=== PATIENT | female | born 1960 | race Caucasian/White ===

== ENCOUNTER 2018-09-27 15:42 | Emergency (ER) | payer OTHER ==
[2018-09-27] MEDS ORDERED: Bacitracin 500 Units/gm Oint Foilpak UD TOP STA (16:03)
--- NOTE | 2018-09-27 16:03 | ED PDOC ---
Upper Extremity Pain/Injury Time Seen by Provider: 09/27/18 15:56 Chief Complaint (Nursing): Finger,Hand,&Wrist Chief Complaint (Provider): Right Finger Injury History Per: Patient History/Exam Limitations: no limitations Onset/Duration Of Symptoms: Days (x1) Current Symptoms Are (Timing): Still Present Additional Complaint(s): 57 year old female presents to the ED for evaluation of a right hand injury. Patient states that last night around 1999 she was cutting a cucumber with a slicer when she accidentally cut the fifth finger which she initially cleaned with water and Neosporin. Reports that she came in today to make sure there was no signs of infection. Otherwise denies fever, chills, and other complaints. No active bleeding upon arrival, but patient does have localized pain to the area. Right hand dominant Tetanus up to date (x3 years) PMD: none provided Past Medical History Reviewed: Historical Data, Nursing Documentation, Vital Signs Vital Signs: Last Vital Signs Temp 97.6 F 09/27/18 15:52 Pulse 62 09/27/18 15:52 Resp 16 09/27/18 15:52 BP 117/63 09/27/18 15:52 Pulse Ox 99 09/27/18 15:52 - Medical History PMH: Hyperthyroidism, Pneumonia - Surgical History Surgical History: Cholecystectomy, (x1) - Family History Family History: States: Unknown Family Hx - Social History Current smoker - smoking cessation education provided: No Alcohol: None Drugs: Denies - Home Medications Home Medications: Ambulatory Orders Medication Instructions Recorded Hydrocodone/Acetaminophen 1 tab PO Q4H PRN #12 tab 07/07/15 [Acetaminophen-Hydrocodone Bitartrate 325 mg-5] Sulfamethoxazole/Trimethopri 1 tab PO BID #14 tab 07/07/15 [Bactrim Ds 800 mg-160 mg] RX: Bacitracin 1 each TOP BID #1 tube 09/27/18 RX: Naproxen 500 mg PO BID PRN #20 tab 09/27/18 - Allergies Allergies/Adverse Reactions: Allergies Allergy/AdvReac Type Severity Reaction Status Date / Time No Known Allergies Allergy Verified 09/27/18 15:52 Review of Systems ROS Statement: Except As Marked, All Systems Reviewed And Found Negative Constitutional: Negative for: Fever, Chills Skin: Positive for: Other (cut on right hand fifth finger with mild localized pain, no bleeding) Physical Exam - Reviewed Nursing Documentation Reviewed: Yes Vital Signs Reviewed: Yes - Physical Exam Comments: GENERAL APPEARANCE: Patient is awake, alert, oriented x 3, in no acute distress. Resting comfortably. SKIN: Warm, dry; (-) cyanosis. NECK: Supple, FROM CHEST AND RESPIRATORY: (-) rales, (-) rhonchi, (-) wheezes; breath sounds equal bilaterally. HEART AND CARDIOVASCULAR: (-) irregularity RIGHT HAND: 1cm x 1cm superficial skin avulsion to ulnar aspect of distal palmar surface of right fifth digit, (+) localized tenderness, (-) tendon involvement, (-) bone involvement, (-) active bleeding, (-) erythema, (-) drainage, (-) edema (-) evidence of surrounding infection. Full ROM all digits. Sensation and capillary refill intact. NEURO AND PSYCH: Mental status as above. Gait: steady. Speech: clear. (-) facial asymmetry - ECG O2 Sat by Pulse Oximetry: 99 (RA) Pulse Ox Interpretation: Normal Medical Decision Making Medical Decision Making: Initial Impression: skin avulsion of finger Time: 1600 Initial Plan: --Wound irrigated with saline and dressed with a Bacitracin bandage. Patient educated on wound care. --Naproxen 500mg PO Lab/Diagnostic results d/w the patient in great detail. Diagnosis of skin avulsion of finger d/w the patient. Based on history, exam and diagnostic results, plan will be for outpatient follow up with PMD/hand. Patient instructed to follow-up with pmd / referral provided / the clinic in 1- 2 days without fail. Advised to take medication as prescribed. Return to the emergency room at any time for any new or worsening symptoms. Patient states she fully agrees with and understands discharge instructions. States that she agrees with the plan and disposition. Verbalized and repeated discharge instructions and plan. I have given the patient opportunity to ask any additional questions. --- Scribe Attestation: Documented by Ann Madrigal, acting as a scribe for Kimberly De La Cruz PA-C. Provider Scribe Attestation: All medical record entries made by the Scribe were at my direction and personally dictated by me. I have reviewed the chart and agree that the record accurately reflects my personal performance of the history, physical exam, medical decision making, and the department course for this patient. I have also personally directed, reviewed, and agree with the discharge instructions and disposition. Disposition - Clinical Impression Clinical Impression: Avulsion of skin of finger - Patient ED Disposition Is Patient to be Admitted: No Counseled Patient/Family Regarding: Studies Performed, Diagnosis, Need For Followup, Rx Given - Disposition Referrals: Celestina Herbert MD [Staff Provider] - primary, doctor [Other] Disposition: Routine/Home Disposition Time: 16:20 Condition: STABLE Additional Instructions: The emergency medical care you received today was directed at your acute symptoms. If you were prescribed any medication, please fill it and take as directed. It may take several days for your symptoms to resolve. Return to the Emergency Department if your symptoms worsen, do not improve, or if you have any other problems. Please contact your doctor in 2 days for re-evaluation and follow up / or call one of the physicians/clinics you have been referred to that are listed on the Patient Visit Information form that is included in your discharge packet. Bring any paperwork you were given at discharge with you along with any medications you are taking to your follow up visit. Our treatment cannot replace ongoing medical care by a primary care provider (PCP) outside of the emergency department. Prescriptions: RX: Bacitracin 1 each TOP BID #1 tube RX: Naproxen 500 mg PO BID PRN #20 tab PRN Reason: Pain, Moderate (4-7) Instructions: Wound Care (DC), Common Finger Injuries (DC) Forms: [employer] (Hungarian) Print Language: FRENCH - POA Present On Arrival: None
[2018-09-27] MEDS ORDERED: Naproxen 500 MG TAB PO STA (16:07)
[2018-09-27] MEDS ORDERED: Naproxen 500 MG TAB PO ONE (16:13)
[2018-09-27] MEDS ORDERED: Bacitracin 500 Units/gm Oint Foilpak UD ONE (16:13)
[2018-09-27 16:38] VITALS: BP 122/70; PULSE 78; RESP 18; TEMP 98
[2018-09-30 17:21] VITALS: O2SAT 99
== END 2018-09-27 16:37 | disposition home or self-care (01) ==
LOC: H.ER 15:42
DX: S61.306A Unspecified open wound of right little finger with damage to nail, initial encounter (principal); W26.0XXA Contact with knife, initial encounter; Y92.89 Other specified places as the place of occurrence of the external cause; E05.90 Thyrotoxicosis, unspecified without thyrotoxic crisis or storm

== ENCOUNTER 2018-11-17 17:30 | Emergency (ER) | payer SELFPAY ==
[2018-11-17 17:58] VITALS: BP 119/76; PULSE 84; RESP 16; TEMP 98.3; O2SAT 98
== END 2018-11-17 18:45 | disposition left against medical advice (07) ==
LOC: H.ER 17:30
DX: Z02.89 Encounter for other administrative examinations (principal)

== ENCOUNTER 2018-11-18 13:37 | Emergency (ER) | payer SELFPAY ==
[2018-11-18 13:46] VITALS: BP 123/77; PULSE 87; RESP 17; TEMP 98.3; O2SAT 100
[2018-11-18] MEDS ORDERED: Naproxen 500 MG TAB PO STA (13:59)
[2018-11-18] MEDS ORDERED: Naproxen 500 MG TAB PO ONE (14:18)
[2018-11-18 14:39] LABS: URINE BACTERIA OCC (<OCC); URINE BILIRUBIN NEGATIVE (NEGATIVE); URINE BLOOD MODERATE (NEGATIVE); URINE CLARITY CLOUDY (Clear); URINE COLOR YELLOW (YELLOW); URINE GLUCOSE (UA) NEG (NEGATIVE); URINE LEUKOCYTE ESTERASE LARGE Leu/uL (Negative); URINE PROTEIN 30 mg/dL (NEGATIVE); URINE UROBILINOGEN 0.2-1.0 mg/dL (0.2-1.0); WBC CLUMPS OCC /hpf
--- NOTE | 2018-11-18 14:45 | ED PDOC ---
HPI: Female Pain Time Seen by Provider: 11/18/18 13:46 Chief Complaint (Nursing): Female Genitourinary Chief Complaint (Provider): Female Genitourinary History Per: Patient History/Exam Limitations: no limitations Onset/Duration Of Symptoms: Days (x6) Current Symptoms Are (Timing): Still Present Additional Complaint(s): 58 year old female presents to the emergency department with complaints of dysuria and urgency since 11/13/18. She reports associated lower abdominal pain and tactile fever that resolved spontaneously 2 days ago. Patient denies present fever, chills, nausea, vomiting, diarrhea, hematuria, history of UTI, flank or back pain. She did not take any mediations for relief prior to arrival. LMP: age 41. No other complaints at present. PCP: none provided Past Medical History Reviewed: Historical Data, Nursing Documentation, Vital Signs Vital Signs: Last Vital Signs Temp 98.3 F 11/18/18 13:39 Pulse 87 11/18/18 13:39 Resp 17 11/18/18 13:39 BP 123/77 11/18/18 13:39 Pulse Ox 100 11/18/18 13:39 - Medical History PMH: Hyperthyroidism, Hypothyroidism, Pneumonia - Surgical History Surgical History: Cholecystectomy, (x1) - Family History Family History: States: Unknown Family Hx - Home Medications Home Medications: Ambulatory Orders Medication Instructions Recorded Hydrocodone/Acetaminophen 1 tab PO Q4H PRN #12 tab 07/07/15 [Acetaminophen-Hydrocodone Bitartrate 325 mg-5] Sulfamethoxazole/Trimethopri 1 tab PO BID #14 tab 07/07/15 [Bactrim Ds 800 mg-160 mg] Bacitracin 1 each TOP BID #1 tube 09/27/18 Naproxen 500 mg PO BID PRN #20 tab 09/27/18 Naproxen 500 mg PO BID PRN #20 tab 11/18/18 Nitrofurantoin Macrocrystals 100 mg PO BID #14 cap 11/18/18 [Macrobid] Phenazopyridine HCl [Pyridium] 200 mg PO BID PRN #4 tablet 11/18/18 - Allergies Allergies/Adverse Reactions: Allergies Allergy/AdvReac Type Severity Reaction Status Date / Time No Known Allergies Allergy Verified 11/17/18 17:55 Review of Systems ROS Statement: Except As Marked, All Systems Reviewed And Found Negative Constitutional: Negative for: Fever (resolved), Chills Gastrointestinal: Positive for: Abdominal Pain (lower). Negative for: Nausea, Vomiting, Diarrhea Genitourinary Female: Positive for: Dysuria (and urgency). Negative for: Hematuria Musculoskeletal: Negative for: Back Pain (or flank pain) Physical Exam - Reviewed Nursing Documentation Reviewed: Yes Vital Signs Reviewed: Yes - Physical Exam Comments: GENERAL APPEARANCE: Patient is awake, alert, oriented x 3, in no acute distress. Resting comfortably. SKIN: Warm, dry; (-) cyanosis. NECK: Supple, FROM CHEST AND RESPIRATORY: (-) wheezing; (-) rales, (-) rhonchi; breath sounds equal bilaterally. Respirations even and nonlabored. HEART AND CARDIOVASCULAR: (-) irregularity ABDOMEN AND GI: Soft; (+) mild suprapubic tenderness (-) distention (-) guarding (-) CVA tenderness. EXTREMITIES: (-) deformity NEURO AND PSYCH: Mental status as above; (-) focal findings. Gait: steady. Speech: clear. (-) facial asymmetry - Laboratory Results Lab Results: Urine Color Yellow (YELLOW) 11/18/18 14:29 Urine Clarity Cloudy (Clear) 11/18/18 14:29 Urine pH 7.0 (5.0-8.0) 11/18/18 14:29 Ur Specific [place] 1.010 (1.003-1.030) 11/18/18 14:29 Urine Protein 30 mg/dL (NEGATIVE) 11/18/18 14:29 Urine Glucose (UA) Neg mg/dL (NEGATIVE) 11/18/18 14:29 Urine Ketones Negative mg/dL (NEGATIVE) 11/18/18 14:29 Urine Blood Moderate (NEGATIVE) 11/18/18 14:29 Urine Nitrate Positive (NEGATIVE) H 11/18/18 14:29 Urine Bilirubin Negative (NEGATIVE) 11/18/18 14:29 Urine Urobilinogen 0.2-1.0 mg/dL (0.2-1.0) 11/18/18 14:29 Ur Leukocyte Esterase Large Fatou/uL (Negative) 11/18/18 14:29 Urine RBC (Auto) 19 /hpf (0-3) H 11/18/18 14:29 Urine WBC Clumps (Auto) Occ /hpf (NONE) H 11/18/18 14:29 Urine Microscopic WBC 261 /hpf (0-5) H 11/18/18 14:29 Urine Bacteria Occ (<OCC) H 11/18/18 14:29 - ECG O2 Sat by Pulse Oximetry: 100 (RA) Pulse Ox Interpretation: Normal Medical Decision Making Medical Decision Making: Initial Impression: Urine urgency and dysuria, probable UTI Initial Plan: * Naproxen PO * Pyridium PO * Urine culture * UA * Re-evaluation 1450 U/A reviewed. (+) UTI. Macrobid 100mg PO ordered. On re-evaluation, patient reports improvement of symptoms. On exam, patient remains AAOx3, in no acute distress. Vitals stable. Lab/Diagnostic results d/w the patient in great detail. Diagnosis of dysuria, UTI d/w the patient. Based on history, exam and diagnostic results, plan will be for outpatient follow up. Patient instructed to follow-up with pmd / referral provided / the clinic in 1- 2 days without fail. Advised to take medication as prescribed. Return to the emergency room at any time for any new or worsening symptoms. Patient states she fully agrees with and understands discharge instructions. States that she agrees with the plan and disposition. Verbalized and repeated discharge instructions and plan. I have given the patient opportunity to ask any additional questions. Scribe Attestation: Documented by Rosa Gilmore, acting as a scribe for Kimberly De La Cruz PA-C. Provider Scribe Attestation: All medical record entries made by the Scribe were at my direction and personally dictated by me. I have reviewed the chart and agree that the record accurately reflects my personal performance of the history, physical exam, medical decision making, and the department course for this patient. I have also personally directed, reviewed, and agree with the discharge instructions and disposition. Disposition - Clinical Impression Clinical Impression: Urinary tract infection, Dysuria, Urinary urgency - Patient ED Disposition Is Patient to be Admitted: No Counseled Patient/Family Regarding: Studies Performed, Diagnosis, Need For Followup, Rx Given - Disposition Referrals: [facility] [Outside] [facility] [Outside] Disposition: Routine/Home Disposition Time: 14:50 Condition: STABLE Additional Instructions: The emergency medical care you received today was directed at your acute symptoms. If you were prescribed any medication, please fill it and take as directed. It may take several days for your symptoms to resolve. Return to the Emergency Department if your symptoms worsen, do not improve, or if you have any other problems. Please contact your doctor in 2 days for re-evaluation and follow up / or call one of the physicians/clinics you have been referred to that are listed on the Patient Visit Information form that is included in your discharge packet. Bring any paperwork you were given at discharge with you along with any medications you are taking to your follow up visit. Our treatment cannot replace ongoing medical care by a primary care provider (PCP) outside of the emergency department. Prescriptions: Naproxen 500 mg PO BID PRN #20 tab PRN Reason: Pain, Moderate (4-7) Nitrofurantoin Macrocrystals [Macrobid] 100 mg PO BID #14 cap Phenazopyridine HCl [Pyridium] 200 mg PO BID PRN #4 tablet PRN Reason: urinary discomfort Instructions: Urinary Tract Infections in Adults, Dysuria, Adult (DC) Forms: [employer] (Central African) Print Language: GABONESE - POA Present On Arrival: None Results - Lab Results Lab Results: 11/18/18 14:29 Urine Color Yellow Urine Clarity Cloudy Urine pH 7.0 Ur Specific [place] 1.010 Urine Protein 30 Urine Glucose (UA) Neg Urine Ketones Negative Urine Blood Moderate Urine Nitrate Positive H Urine Bilirubin Negative Urine Urobilinogen 0.2-1.0 Ur Leukocyte Esterase Large Urine RBC (Auto) 19 H Urine WBC Clumps (Auto) Occ H Urine Microscopic WBC 261 H Urine Bacteria Occ H
== END 2018-11-18 15:14 | disposition home or self-care (01) ==
LOC: H.ER 13:37
DX: N39.0 Urinary tract infection, site not specified (principal); R39.15 Urgency of urination; E03.9 Hypothyroidism, unspecified; E05.90 Thyrotoxicosis, unspecified without thyrotoxic crisis or storm

== ENCOUNTER 2018-12-02 14:34 | Emergency (ER) | payer OTHER ==
[2018-12-02 14:43] VITALS: BP 128/77; PULSE 72; RESP 19; TEMP 97.9; O2SAT 99
--- NOTE | 2018-12-02 14:58 | ED PDOC ---
HPI: Female Pain Time Seen by Provider: 12/02/18 14:49 Chief Complaint (Nursing): Female Genitourinary Chief Complaint (Provider): Burning with urination History Per: Patient History/Exam Limitations: no limitations Current Symptoms Are (Timing): Still Present Additional Complaint(s): 58 y/o female presents to the ED complaining of burning with urination associated with abdominal pain. Patient reports she only has abdominal pain when she urinates. She states she urinates in small amounts but more frequently. She reports when she wiped this morning, she saw some blood. Denies nausea, vomiting, or back pain. Patient states this happened a few weeks ago and improved with antibiotics. Patient denies being sexually active. PMD: none Past Medical History Reviewed: Historical Data, Nursing Documentation, Vital Signs Vital Signs: Last Vital Signs Temp 97.9 F 12/02/18 14:41 Pulse 72 12/02/18 14:41 Resp 19 12/02/18 14:41 BP 128/77 12/02/18 14:41 Pulse Ox 99 12/02/18 14:41 - Medical History PMH: Hyperthyroidism, Hypothyroidism, Pneumonia - Surgical History Surgical History: Cholecystectomy, (x1) - Family History Family History: States: Unknown Family Hx - Social History Current smoker - smoking cessation education provided: No Alcohol: None - Immunization History Hx Tetanus Toxoid Vaccination: No Hx Influenza Vaccination: No Hx Pneumococcal Vaccination: No - Home Medications Home Medications: Ambulatory Orders Medication Instructions Recorded Hydrocodone/Acetaminophen 1 tab PO Q4H PRN #12 tab 07/07/15 [Acetaminophen-Hydrocodone Bitartrate 325 mg-5] Sulfamethoxazole/Trimethopri 1 tab PO BID #14 tab 07/07/15 [Bactrim Ds 800 mg-160 mg] Bacitracin 1 each TOP BID #1 tube 09/27/18 Naproxen 500 mg PO BID PRN #20 tab 09/27/18 Naproxen 500 mg PO BID PRN #20 tab 11/18/18 Nitrofurantoin Macrocrystals 100 mg PO BID #14 cap 11/18/18 [Macrobid] Phenazopyridine HCl [Pyridium] 200 mg PO BID PRN #4 tablet 11/18/18 Cephalexin [cephalexin] 500 mg PO TID 7 Days #21 cap 12/02/18 Phenazopyridine HCl [Pyridium] 200 mg PO TID #6 tablet 12/02/18 - Allergies Allergies/Adverse Reactions: Allergies Allergy/AdvReac Type Severity Reaction Status Date / Time No Known Allergies Allergy Verified 11/17/18 17:55 Review of Systems ROS Statement: Except As Marked, All Systems Reviewed And Found Negative Gastrointestinal: Positive for: Abdominal Pain (during urination) Genitourinary Female: Positive for: Dysuria, Hematuria, Other (Decreased urination) Physical Exam - Reviewed Nursing Documentation Reviewed: Yes Vital Signs Reviewed: Yes - Physical Exam Comments: GENERAL APPEARANCE: Patient is awake, alert, oriented x 3, in no acute distress. SKIN: Warm, dry; (-) cyanosis. EYES: (-) conjunctival pallor. NECK: (-) tenderness, (-) stiffness, (-) lymphadenopathy. CHEST AND RESPIRATORY: (-) wheezing; (-) rales, (-) rhonchi, (-) rub; breath sounds equal bilaterally. HEART AND CARDIOVASCULAR: (-) irregularity; (-) murmur, (-) gallop. ABDOMEN AND GI: Soft; (-) tenderness. EXTREMITIES: (-) deformity, (-) edema. BACK: (-) CVA tenderness NEURO AND PSYCH: Mental status as above; (-) focal findings. - ECG O2 Sat by Pulse Oximetry: 99 (RA) Pulse Ox Interpretation: Normal Medical Decision Making Medical Decision Making: Initial Impression: UTI Initial Plan: --Pyridium 200mg PO --Urine culture --Urinalysis 15:36 UA shows moderate blood, large leuk, negative nitrates will treat for UTI, pt's previous urine culture was for E.Coli, will treat with keflex which is sensitive Discussed results, diagnosis, treatment, return precautions and f/u with pt who is understanding, in agreement and stabelf or dc Scribe Attestation: Documented by Steve Silva acting as a scribe for Enoch MERCEDES. Provider Scribe Attestation: All medical record entries made by the Scribe were at my direction and personally dictated by me. I have reviewed the chart and agree that the record accurately reflects my personal performance of the history, physical exam, medical decision making, and the department course for this patient. I have also personally directed, reviewed, and agree with the discharge instructions Disposition - Clinical Impression Clinical Impression: Urinary tract infection - Patient ED Disposition Is Patient to be Admitted: No Counseled Patient/Family Regarding: Studies Performed, Diagnosis, Need For Followup, Rx Given - Disposition Referrals: [facility] [Outside] Disposition: Routine/Home Disposition Time: 15:41 Condition: STABLE Additional Instructions: Take antibiotics as prescribed until finished. Drink plenty of water. Follow up with your doctor or the clinic as listed Thank you for letting us take care of you today. The emergency medical care you received today was directed at your acute symptoms. If you were prescribed any medication, please fill it and take as directed. It may take several days for your symptoms to resolve. Return to the Emergency Department if your symptoms worsen, do not improve, or if you have any other problems. Please contact your doctor in 2 days for re-evaluation and follow up / or call one of the physicians/clinics you have been referred to that are listed on the P atient Visit Information form that is included in your discharge packet. Bring any paperwork you were given at discharge with you along with any medications you are taking to your follow up visit. Our treatment cannot replace ongoing medical care by a primary care provider (PCP) outside of the emergency department. Prescriptions: Cephalexin [cephalexin] 500 mg PO TID 7 Days #21 cap Phenazopyridine HCl [Pyridium] 200 mg PO TID #6 tablet Forms: [employer] (Persian) Print Language: ARMENIAN - POA Present On Arrival: None Results - Lab Results Lab Results: 12/02/18 15:06 Urine Color Straw Urine Clarity Slighty-cloudy Urine pH 7.0 Ur Specific [place] 1.009 Urine Protein Negative Urine Glucose (UA) Neg Urine Ketones Negative Urine Blood Moderate Urine Nitrate Negative Urine Bilirubin Negative Urine Urobilinogen 0.2-1.0 Ur Leukocyte Esterase Large Urine RBC (Auto) 33 H Urine Microscopic WBC 92 H Ur Squamous Epith Cells < 1 Urine Bacteria Rare
[2018-12-02 15:32] LABS: SQUAMOUS EPITHIAL < 1 /hpf (0-5); URINE BACTERIA RARE (<OCC); URINE BILIRUBIN NEGATIVE (NEGATIVE); URINE BLOOD MODERATE (NEGATIVE); URINE CLARITY SLIGHTY-CLOUDY (Clear); URINE COLOR STRAW (YELLOW); URINE GLUCOSE (UA) NEG (NEGATIVE); URINE LEUKOCYTE ESTERASE LARGE Leu/uL (Negative); URINE PROTEIN NEGATIVE (NEGATIVE); URINE UROBILINOGEN 0.2-1.0 mg/dL (0.2-1.0)
== END 2018-12-02 15:50 | disposition home or self-care (01) ==
LOC: H.ER 14:34
DX: N39.0 Urinary tract infection, site not specified (principal)